=== PATIENT | female | born 1945 | race Caucasian/White ===

== ENCOUNTER → 2022-02-16 13:50 | Outpatient (BNVA) | payer MEDICARE, MEDICAID, SELFPAY | PROVIDERS: PCP Internal Medicine; Visit Provider Psychiatry & Neurology Neurology | DX: F09 Unspecified mental disorder due to known physiological condition (principal); R06.83 Snoring; R68.89 Other general symptoms and signs; G47.10 Hypersomnia, unspecified | CPT/HCPCS: 99202 ==

== ENCOUNTER → 2023-01-31 11:31 | Outpatient (BNVA) | payer MEDICARE, SELFPAY | PROVIDERS: PCP Internal Medicine; Visit Provider Psychiatry & Neurology Neurology | DX: F09 Unspecified mental disorder due to known physiological condition (principal); R06.83 Snoring; R68.89 Other general symptoms and signs; G47.10 Hypersomnia, unspecified | CPT/HCPCS: 99212 ==

== ENCOUNTER 2023-04-26 11:13 | Outpatient (AMB) | payer MEDICARE, SELFPAY ==
--- NOTE | 2023-04-26 11:16 | A.OFFVIS_ITS ---
Intake Vital Signs 04/26/23 11:25 Weight 151 lb BP 118/72 Blood Pressure Location Lt brachial Position Sitting Pulse 71 Pulse Source Pulse Oximeter Pulse Oximetry (%) 95 Oxygen Delivery Method Room Air Intake Visit Reasons: F/u for Dementia/hallucinations - Confirmed Intake Note: F/u for dementia and hallucination, daughter states that she needs to get a script for Xanas. Dialysis Chief Equipment Technician Required: Yes Dialysis Chief Equipment Technician Name: Cheryl Allergies duloxetine Allergy (Mild, Verified 04/26/23 11:19) Hallucinations HPI HPI Comments History of Present Illness Details 77 y/o female patient comes with her alfredo yomaira for follow up of sleep and cognitive disorder. Pt's daughter reports that patient was admitted to [facility] from Mar 08- due to dizziness, UTI and increased hallucination. She was treated with IV fluid and antibiotic, and discharged with VNA services. [facility] comes everyday to help her ADLs. In lab sleep study was ordered but she could not do it yet. Pt's cognition is same since the last visit. Hallucination is managed well with seroquel 25mg and it helps her sleep better, too She was on Xanax BID and did not get it refill, but will see psychiatrist 05/16/23. She is ok with seroquel now. [facility] Surgical History Hx of tonsillectomy Family History Sister Cancer Brother Cancer Brother Cancer Brother Cancer Son Diabetes Mother Stroke Brother Alcoholic Brother Stomach ache Social History (Updated 04/26/23 @ 11:23 by Dea Lemus CMA) Household Members: None Alcohol intake: current Patient Tobacco Use Status: Never used Tobacco Review of Systems Const All systems reviewed & are unremarkable except as noted in HPI and below Physical Exam Vital Signs: Last Vital Signs Pulse 71 04/26/23 11:25 BP 118/72 04/26/23 11:25 Pulse Ox 95 04/26/23 11:25 Oxygen Delivery Method Room Air 04/26/23 11:25 Const Orientation/consciousness: oriented to person and oriented to place Eyes Pupils: Equal, round and reactive pupils present Neuro Other: MMSE Date-11/22 Place- 12/22 Registration- 10/20 Spelling 5 letter backwards- 5 Recall- 3/3 3 step commands- 10/20 could not do intersecting pentagons Clock- could not do time but was able to write numbers properly Graduated high school in [place] General: oriented to person, oriented to place, tone normal, moves all extremities and no focal motor deficits Cranial nerves: Yes Facial sensation intact/muscles of mastication intact, Yes Equal, round and reactive pupils present, Yes Bilaterally intact EOM present, Yes Normal facial strength present and Yes Midline tongue present Gait exam (Neuro): Antalgic gait present Motor exam (neuro): 5/5 motor strength present throughout Coordination: wwlszk-np-kezk test normal Psych Appearance: grossly normal Speech and movement: Normal speech and movement present Affect: normal affect Assessment & Plan Assessment & Plan (1) Cognitive disorder: Code(s): F09 - Unspecified mental disorder due to known physiological condition (2) Snoring: Code(s): R06.83 - Snoring (3) Vivid dream: Code(s): R68.89 - Other general symptoms and signs (4) Hypersomnia: Code(s): G47.10 - Hypersomnia, unspecified Plan Sleep disorder and mood can be contributing to her cognitive issues. Sleep study is pending, advised patient's daughter to call to schedule the sleep study. Continue quetiapine 25mg qhs. Encouraged patient to increase daily physical and cognitive activity. Coding Level of Care Code Est Pt Level 3 (00710) Diagnoses Cognitive disorder F09 Snoring R06.83 Vivid dream R68.89 Hypersomnia G47.10
[2023-04-26 11:25] VITALS: BP 118/72; PULSE 71; O2SAT 95
== END 2023-04-26 11:48 | disposition home or self-care (01) ==
PROVIDERS: PCP Internal Medicine; Visit Provider Nurse Practitioner Family
DX: R41.89 Other symptoms and signs involving cognitive functions and awareness (principal); R06.83 Snoring; R68.89 Other general symptoms and signs; G47.10 Hypersomnia, unspecified
CPT/HCPCS: 99213

== ENCOUNTER → 2023-04-26 11:13 | Outpatient (BNVA) | payer MEDICARE, SELFPAY | PROVIDERS: PCP Internal Medicine; Visit Provider Nurse Practitioner Family | DX: G47.10 Hypersomnia, unspecified (principal); R06.83 Snoring; F09 Unspecified mental disorder due to known physiological condition; R68.89 Other general symptoms and signs | CPT/HCPCS: 99212 ==

== ENCOUNTER 2025-03-17 20:36 | Emergency (ER) | payer OTHER, SELFPAY ==
--- NOTE | ~2025-03-17 | CT_ITS ---
CLINICAL HISTORY: trauma CT head without contrast Comparison: None provided Findings: No intra-axial mass, midline shift, hydrocephalus, or acute hemorrhage. Moderate atrophy-like change and white matter disease. Mastoid air cells are well aerated. Mild paranasal sinus disease. The orbits are unremarkable. No skull fracture. IMPRESSION: 1. No acute intracranial findings. 2. Chronic/nonacute findings as above. This document has been electronically signed by: Aranza Bazzi MD on 03/18/2025 00:47:10
--- NOTE | ~2025-03-17 | CT_ITS ---
CLINICAL HISTORY: trauma CT lumbar spine without contrast Comparison: None provided Findings: Lumbar spine lordosis is maintained. No acute compression fractures. No spondylolisthesis. Mclz-jl-ibyvzdao multilevel endplate, discogenic and facet arthropathy throughout the lumbar spine. Moderate narrowing of spinal canal at L3-L4 and L4-L5 levels. No acute findings within visualized soft tissues. Indeterminate left adrenal nodule measuring 1.8 cm in size. Bilateral renal cysts. Impression: 1. No acute lumbar spine fracture or subluxation. 2. Multilevel lumbar spine arthropathy most significant at L3-L4 and L4-L5 levels that can be further evaluated with MRI if clinically indicated. 3. Indeterminate 1.8 cm left adrenal nodule. Multiphase adrenal protocol CT or MRI may be considered for further evaluation. 4. Additional chronic/nonacute findings as above. This document has been electronically signed by: Aranza Bazzi MD on 03/18/2025 00:20:27
--- NOTE | ~2025-03-17 | CT_ITS ---
CLINICAL HISTORY: trauma CT cervical spine without contrast Comparison: None provided Findings: Motion and streak artifact limit evaluation. Straightening of the cervical lordosis. Osteopenia. Multilevel spondylosis with osteophytosis, uncovertebral hypertrophy, facet arthropathy and degenerative disc disease. Mildly diffuse spinal canal narrowing for example at C5-C6 with disc bulge and severe bilateral foraminal stenoses drain No acute fractures or dislocations. Soft tissues of the neck are normal. No consolidation or effusion at the lung apices. IMPRESSION: No acute findings. Additional findings as described. This document has been electronically signed by: Param Mills MD on 03/18/2025 01:26:04
[2025-03-17 20:42] VITALS: BP 132/68; BP 150/62; PULSE 110; PULSE 65; RESP 16; TEMP 36.8; O2SAT 96; O2SAT 99; BMI 27.5
--- OUTSIDE RECORDS SUMMARY | 2025-03-17 22:17 | XMS_ITS ---
Author Name [facility] Organization Unknown Care Team Organization Name Specialty Phone Email Start Date End Da te [facility] 06/27/202203/20
--- OUTSIDE RECORDS SUMMARY | 2025-03-17 22:17 | XMS_ITS | Clinical Summary ---
Author Organization [facility] [address] Address [address] [place] [address] Phone Care Team Providers Care Family Physician Name Role Phone Amanda Owens MD Primary Care Provider [phone] Allergies No known active allergies Medications rosuvastatin (CRESTOR) 40 mg tablet TAKE 1 TABLET BY MOUTH DAILY 90 tablet 1 4 Active sertraline (ZOLOFT) 100 mg tablet TAKE 1 TABLET BY MOUTH DAILY 90 tablet 1 4 Active amLODIPine (NORVASC) 5 mg tablet Take 1 tablet (5 mg total) by mouth 1 (one) time each day. 4 Active haloperidoL (HALDOL) 1 mg tablet Take 1 tablet (1 mg total) by mouth. 4 Active lisinopril (PRINIVIL,ZESTR IL) 40 mg tablet Take 1 tablet (40 mg total) by mouth 1 (one) time each day. 4 Active metFORMIN (GLUCOPHAGE) 500 mg tablet Take 2 tablets (1,000 mg total) by mouth 2 (two) times a day with meals. 4 Active metoprolol succinate (TOPROL-XL) 100 mg 24 hr tablet Take 1 tablet (100 mg total) by mouth 1 (one) time each day. 4 Active mirtazapine (REMERON) 7.5 mg tablet Take 1 tablet (7.5 mg total) by mouth at bedtime. 4 Active QUEtiapine (SEROquel) 25 mg tablet Take 1 tablet (25 mg total) by mouth at bedtime as needed. Active rosuvastatin (CRESTOR) 40 mg tablet Take 1 tablet (40 mg total) by mouth 1 (one) time each day. 4 Active sertraline (ZOLOFT) 100 mg tablet Take 1 tablet (100 mg total) by mouth 1 (one) time each day. Active lancets (StealzTouch Delica Plus Lancet) 33 gauge Apply 1 Each topically daily. 3 Active blood-glucose meter kit Use to test blood sugar once daily 3 Active OneTouch Ultra Test test strip Use to test blood sugar once daily 3 Active blood-glucose calibrat control combo pack Use for calibration as needed 6 Active metFORMIN (GLUCOPHAGE) 500 mg tablet TAKE 2 TABLETS BY MOUTH TWICE DAILY WITH MEALS 120 tablet 5 Active Active Problems Problem Noted Date Diagnosed Date Anxiety 07/15/2024 Arthritic-like pain 07/15/2024 Depression 07/15/2024 HTN (hypertension) 07/15/2024 Stage 3a chronic kidney disease ([facility] V24, [facility] V28) 03/02/2023 Insomnia 10/26/2022 Osteoarthritis of right knee 06/25/2020 Alzheimer disease ([facility] V24, [facility] V28) 09/2018 Overview (07/15/2024): Follows with neurology, Dr. Green Type 2 diabetes mellitus wit hout complication ([facility] V24, [facility] V28) 04/08/2018 Hyperlipidemia LDL goal <100 03/02/2016 GERD (gastroesophageal reflux disease) 2 Immunizations Name Administration Dates Next Due Influenza trivalent, 0.5mL ( Fluad) 65yo and older 07/17/2022,06/25/2020,07/31/2019,06/18,09/12/2017,05/23/2016 Influenza trivalent, with pr eservative (Fluzone; Afluria) 6mo and older 06/14/2015 Pneumococcal conjugate 13 va lent (Prevnar 13, PCV13) 2mo and older 03/02/2016 Pneumococcal polysaccharide 23 valent (Pneumovax 23) 2yo and older 11/16/2010 Td Tetanus diptheria (Tdvax) 7yo and older 07/07/2021,11/16/2010 Tdap Tetanus diptheria acell ular pertussis (Boostrix; Adacel) 7yo and older 07/17/2022 Surgical History Surgery Date Site/Laterality Comments TONSILLECTOMY 1959' PROCEDURE: HISTORICAL TONSILLECTOMY Medical History Medical History Date Comments HTN (hypertension) DX:HTN (hyper tension) High cholesterol DX:High cholest kim Depression DX:Depression Anxiety DX:Anxiety Arthritic-like pain DX:Arthritic -like pain Kidney stones DX:Kidney stones Diabetes type 2, uncontrolled 12/15/2011 DX :Diabetes type 2, uncontrolled Hyperlipidemia LDL goal <100 03/02/2016 DX: Hyperlipidemia LDL goal <100 Family History Relation Name Status Comments Brother 1 prostate ca Brother 2 liver ca Brother 3 Alive dm, htn , high cholesterol Brother 4 Alive htn, Brother 5 Alive alcholic Brother 6 Alive stomach problem s Daughter 1 Alive scoliosis,carpa l tunnel depression and anxiety Daughter 2 Alive depression low blood pressure Father liver problems Maternal Grandfather Maternal Grandmother Mother stroke Paternal Grandfather Paternal Grandmother (Age 102) o ld age Sister 1 Alive htn,depression Sister 2 Alive unknown Sister 3 Alive depressin, anxi ety, arthritis Son 1 Alive bipolor Son 2 Alive dm severe Social History Tobacco Use Types Packs/Day Years Used Date Smoking Tobacco: Never Smokeless Tobacco: Never Alcohol Use Standard Drinks/Week Comments No 0 (1 standard drink = 0.6 oz pur e alcohol) Comments Unknown Sex and Gender Information Value Date Recorded Sex Assigned at Not on file Legal Sex Female 8:26 AM EST Gender Identity Not on file Sexual Orientation Not on file Obstetrics History Last Filed Vital Signs Vital Sign Reading Time Taken Comments Blood Pressure 126/82 05/29/2024 1:49 PM EDT Pulse 78 05/29/2024 1:49 PM EDT Temperature - - Respiratory Rate - - Oxygen Saturation - - Inhaled Oxygen Concentration - - Weight 61.7 kg (136 lb) 05/29/2024 1:49 PM EDT Height 157.5 cm (5' 2 ) 05/29/2024 1:49 PM EDT Body Mass Index 24.87 05/29/2024 1:49 PM EDT Plan of Treatment Health Maintenance Due Date Last Done Comments Diabetes: Annual Foot Exam 1955 Diabetes: Annual Retina Eye Exam 1955 Zoster Vaccines (1 of 2) 1963 RSV Immunization Adult Patients (1 - 1-dose 75+ series) 2019 COVID-19 Vaccine (3 - Moderna risk series) 12/31/2020 12/03/2020, 11/05/2020 Falls Risk Assessment 07/23/2022 Osteoporosis Screening (Bone Density Screening) 07/23/2022 Social Influencers of Health Screening 07/23/2022 Medicare Annual Wellness Visit 07/17/2023 07/17/2022 Depression Screening 08/20/2024 Diabetes: Blood Sugar Control Test (HGBA1C) 08/20/2024 02/18/2024, 02/18/2024 Diabetes: Annual Urine Albumin-Creatinine Ratio (uACR) 02/17/2025 02/18/2024 Diabetes: Annual GFR (Glomerular Filtration Rate) 02/17/2025 02/18/2024, 02/18/2024 Hypertension/CHF/CAD Annual BMP Blood Test 02/17/2025 02/18/2024, 02/18/2024 Influenza Vaccine (#1) 2025 , 05/27/2021, 06/25/2020, Additional history exists Cholesterol Screening (Lipid Panel) 02/17/2029 02/18/2024, 02/18/2024 DTaP,Tdap,and Td Vaccines (4 - Td or Tdap) 07/17/2032 07/17/2022, 07/07/2021, 11/16/2010 Pneumococcal Vaccine: 50+ Years Completed 03/02/2016, 11/16/2010 HIB Vaccines Aged Out No longer eligi ble based on patient's age to complete this topic HPV Vaccines Aged Out No longer eligi ble based on patient's age to complete this topic Hepatitis A Vaccines Aged Out No long er eligible based on patient's age to complete this topic Hepatitis B Vaccines Aged Out No long er eligible based on patient's age to complete this topic IPV Vaccines Aged Out No longer eligi ble based on patient's age to complete this topic MMR Vaccines Aged Out No longer eligi ble based on patient's age to complete this topic Meningococcal ACWY Vaccine Aged Out N o longer eligible based on patient's age to complete this topic Meningococcal B Vaccine Aged Out No l onger eligible based on patient's age to complete this topic RSV Immunization Patients Under 20 months Aged Out No longer eligible based on patient's age to complete this topic Varicella Vaccines Aged Out No longer eligible based on patient's age to complete this topic Procedures Procedure Name Priority Date/Time Associated Diagnosis Comments URINE ALBUMIN CREATININE RATIO Routine 02/18/2024 ANNUAL BMP BLOOD TEST Routine 02/18/2024 HEMOGLOBIN A1C Routine 02/18/2024 LIPID PANEL Routine 02/18/2024 from Last 3 Months or Most Recently Relevant to Health Maintenance Results * Urine Albumin Creatinine Ratio (02/18/2024) Pathologist [facility] Urine Albumin Creatinine Ratio abstracted Result [facility] HEALTH MAINTENANCE Final Result * Annual BMP Blood Test (02/18/2024) Pathologist [facility] Annual BMP Blood Test abstracted Result [facility] HEALTH MAINTENANCE Final Result * (ABNORMAL) Hemoglobin A1c (02/18/2024) Pathologist [facility] Hemoglobin A1C 6.9(A) <=6.5 % Blood Venous blood specimen / Unknown Result [facility] Provider LAB BLOOD ORDERABLES Betzy l Result * (ABNORMAL) Lipid panel (02/18/2024) Pathologist [facility] LDL/HDL Ratio 3 0 - 4 Triglycerides 93 0 - 150 mg/dL Cholesterol 211(A) 0 - 200 mg/dL HDL 68 >=40 mg/dL LDL Cholesterol 125(A) 0 - 100 mg/dL Blood Venous blood specimen / Unknown Result [facility] Provider LAB BLOOD ORDERABLES Betzy l Result from Last 3 Months or Most Recently Relevant to Health Maintenance Insurance [employer] MEDICARE Member Subscriber Plan / Payer (Ef fective 2022-Present) Name:Cheryl Hatfield Relation to Subscriber:Self Name:Cheryl Hatfield Payer ID:[id number] Group ID:[id number] Type:Not on file Address: [facility] [address] [address] Care Teams Family Physician Relationship Specialty Start Date End Date Amanda Owens MD PCP - General 01/28/24
--- OUTSIDE RECORDS SUMMARY | 2025-03-17 22:17 | XMS_ITS | Data Portability ---
Author Organization [facility], Main Office Address [address] [place] [address] Care Team Providers Care Utility System Repairer Name Role Phone KAMERON MCCARTY - 2ND FLOOR OTHER Assessment No assessment recorded. Plan of Treatment Reminders Order Date Submit Date Provider Last Modified By Organization Details Last Modified Time Details Appointments Admitting H&P 2024 11:19A M Harry Del Castillo MD Not available Not available Not available Lab None recorded. Referral None recorded. Procedures None recorded. Surgeries None recorded. Imaging None recorded. Medication Orders None recorded. Patient TargetsNo targets recorded. Patient InstructionsNo instructions recorded. Reason for Referral None Reported. Problems Name Problem SNOMED Code Status Onset Date Resolution Date Notes Provider Name and Address Organization Details Recorded Time Hyponatremia 35211116 Active [address] NP [address], [address], [place], [address], [facility] 5 09:23:43 Essential hypertension 60082958 Active [address] NP [address], [address], [place], [address], [facility] 5 09:24:23 Vascular dementia 268880449 Active [address] NP [address] , [address], [place], [address], [facility] 5 09:28:14 Diabetic on oral treatment 298367256 Active [address] NP [address] , [address], [place], [address], [facility] [employer] [facility] 5 09:28:[address] Active [address] NP [address], [address], [place], [address], [facility] 09:28:53 Problem Notes None recorded. Medical Equipment None Reported. Allergies No known drug allergies Medications Not known to be on any medication Vitals Date Recorded Body weight Heart rate Respiratory rate Body temperature Oxygen saturation Oxygen saturation in Arterial blood by Pulse oximetry Systolic And Diastolic Provider Name and Address Organization Details Last Updated DateTime 36755.3 g 60 /min 18 /min 97.6 [degF] 98 % 98 % 122/75 mm[Hg] Ave Weston NP [address], [address], [place], [address], [facility] 08:48:43 Date Recorded Body weight Heart rate Respiratory rate Systolic And Diastolic Provider Name and Address Organization Details Last Updated DateTime 03/17/2025 77387.3 g 73 /min 18 /min 114/58 mm[Hg] Harry Del Castillo MD [address], [address], [place], [address] , [facility] 03/17/2025 11:20:42 Social History Question Answer Notes LastModified by Organizat ion Details LastModified Time Tobacco Smoking Status Never Smoker Ave Weston NP [address], [facility] [address], [place], [address], [facility] 03/11/2025 09:18:18 Do You Have An Advance Directive? No Information not available 03/11/2025 What Is Your Code Status? Full Code Information not available 03/11/2025 Where Do You Live? Apartment Lives Alone In Custodial Information not available 03/11/2025 What Was The Date Of Your Most Recent Tobacco Screening? 03/11/2025 Information not available 03/11/2025 Do You Have An Out Of Hospital DNR? No Information not available 03/11/2025 What Is Your Relationship Status? Information not available 03/11/2025 Has Tobacco Cessation Counseling Been Provided? No Information not available 03/11/2025 Sex: Female Functional Status Question Answer Note LastModified by Organizat ion Details LastModified Time Do you use any illicit or recreational drugs? No Information not available 03/11/2025 Do you or have you ever used any other forms of tobacco or nicotine? No Information not available 03/11/2025 What is your level of alcohol consumption? None Information not available 03/11/2025 Mental Status None recorded. Family History Nothing Reported Notes:sister: colon ca broth er: stroke Medical History No medical history recorded. Gynecological HistoryNo gynecological history recorded. Obstetrics History GPAL:G 0 P 0 0 0 0 Past Encounters Encounter ID Performer Location Encounter Start Date Encounter Closed Date Diagnosis/Indication Diagnosis SNOMED-CT Code Diagnosis ICD10 Code Diagnosis Note [id number] Ave Weston NP [address] [address] 03/11/2025 08:12:19 03/12/2025 16:20:00 Vascular dementia 005135374 F01.B11 pt with vascular dementia and agitation now seeking LTCstarted on trazodone 25 mg po qhs and 25 mg po q 12 hrs prn x 14 days in [facility] today with hcpsupport william care and redirectio nfull work up in ER done and no obvious abnormalit iessupport [facility] r Hyponatremia 11553737 E8 7.1 notable hx of na in past, likely chronic hyponatrem iasodium corrected [facility] na weekly with bmp and adjust according Diabetic o n oral treatment 067787129 E11.9 Z79.84 on metformin 1000 mg po bid, unclear if she was on this at home daily or biddanathalie r requesting daily dosing for gi upsetmetfo rmin 1000mg [facility] and reassess on 8/6bmp weekly Essential hypertension 06543330 I10 hx ofbp controlled heremetopr olol 100mg xl po qdamlodipi ne 5 mg po qdmonitor Arthritis 9850150 M19.90 pt with inflammed outer ankle mallelous, lower back painpt states this is chronic arthritisn o obvious foot, ankle generalize d, or lower ext edemapt has poor footwear, rec sneakersty lenol 650 mg po bid nte 3 grams/24 hrsmonitor for need to adjust Recurrent falls 64610202 2 R29.6 pt with recurrent fallssuppo rtive carept ot eval and treatmonit or Hyperlipidemia 23248225 E78.5 rosuvastat in 40 mg po qhsmonitor labs prn [id number] Harry Del Castillo MD [address] [address] 03/17/2025 11:19:45 03/17/2025 11:48:03 Vascular dementia 688116146 F01.B11 see HPIprogres sive dementia with patient started on trazodone during hospitaliz ationinvok e HCPpsych to [facility] r for behaviorsp atient with increased agitation at facility has required prn dosing with limited results worse at nightincre ased totrazodon e 50 mg qhs scheduled and 50 mg bid prn breakthrou gh agitationa wait psych recommenda tions Hyponatremia 16032408 E8 7.1 see HPIhx of recurrent episodes of hyponatrem iatreated with IVF during hospitaliz ationmonit or lytes and fluid status Diabetic o n oral treatment 652536774 E11.9 Z79.84 metformin was held and patient covered with SS insulin in hospitalme tformin 1000 mg bid restarted on dischargeH Ba1c=6.7 from hospital d/cmonitor blood glucose and need to titrate Essential hypertension 25135762 I10 maintained onmetoprol ol 100 mg qdnorvasc 5 mg qdmonitor need to titrate Recurrent falls 29788683 2 R29.6 PT OT eval and treatmonit or fall risk and need for increased support in community vs need to transition to LTC Mixed hyperlipidemia 267 244734 E78.2 rosuvastat in 40 mg qhscontinu ed Health Concerns Section Related Observation LastModified by Organization Detai ls LastModified Time None Recorded Concern Status LastModified by Organization Details LastModified Time None Recorded Advance Directives Directive N: Payers Insurance Date Sequence Insurance Name Policy Number Policy Rivera Covered Member ID Rivera Member ID Guarantor Name 03/17/2025 1 [facility] - DOS ON OR AFTER 2022 - MEDICARE ADVANTAGE [place] (MEDICARE REPLACEMENT/ADV ANTAGE - PPO) Cheryl Hatfield [id number] Cheryl Hatfield OBGyn Episode No OBEpisode recorded.
[2025-03-17 23:24] LABS: Hematocrit 37.4 % (37.0-47.0); Hemoglobin 12.7 g/dl (12.0-16.0); Imm Gran Abs Auto 0.03 X10*3/uL (0.00-0.03); Imm Gran Pct Auto 0.3 % (0.0-0.4); Lymphocytes Absolute Auto 3.2 X10*3/uL (1.2-4.9); MANUAL DIFF FLAG NO; Mean Corpuscular HGB Conc 34.0 g/dl (31.0-35.0); Mean Corpuscular Hemoglobin 29.3 pg (27.0-33.0); Mean Corpuscular Volume 86.4 fL (80.0-98.0); NRBC Abs Auto 0.000 X10*3/uL (0.0-0.012); NRBC Pct Auto 0.0 /100WBC (0.0-0.2); Platelet Count 175 X10*3/uL (160-400); Red Blood Count 4.33 X10*6/uL (4.20-5.50); White Blood Count 10.4 X10*3/uL (4.8-10.8)
--- NOTE | 2025-03-17 23:30 | PC.NURSE ---
Report taken from Mariia. Pt off to CT at this time.
[2025-03-17 23:40] LABS: Alanine Aminotransferase 18 U/L (0-31); Albumin Level 4.2 g/dL (3.5-5.0); Alkaline Phosphatase 52 U/L (39-117); Anion Gap 15 (12-20); Aspartate Amino Transferase 32 U/L (5-31); Blood Urea Nitrogen 20 mg/dL (9-16); Calcium 9.3 mg/dL (8.4-10.2); Carbon Dioxide 24 mmol/L (22-29); Chloride 102 mmol/L (96-108); Creatinine Clr Calc Pharmacy 49.7; Estimated Glomerular Filt Rate > 60; Magnesium 1.8 mg/dL (1.6-2.6); Potassium 4.0 mmol/L (3.3-5.1); Sodium 137 mmol/L (135-145); Total Protein 7.7 g/dL (6.5-8.0)
[2025-03-17 23:48] VITALS: BP 158/67; PULSE 60; RESP 16; TEMP 36.6; O2SAT 97
--- NOTE | 2025-03-18 01:30 | ED.GENADULT ---
HPI - General Adult General Chief complaint: Fall Stated complaint: Fall Time Seen by Provider: 03/17/25 22:45 Source: EMS Limitations: language barrier and other (dementia) History of Present Illness ED Provider: Kelly Cuevas PA-C HPI narrative: 79-year-old female with a history of dementia, hypertension, diabetes, hyperlipidemia who presents from [facility] after an unwitnessed fall. The patient's only complaint is for low back pain. Related Data Home Medications ?Medication ?Instructions ?Recorded ?Confirmed alprazolam 1 mg tablet 1 mg PO BID PRN 02/10/22 01/31/23 amlodipine 5 mg tablet 5 mg PO DAILY 02/10/22 01/31/23 glipizide 10 mg tablet 10 mg PO BID 02/10/22 01/31/23 hydrochlorothiazide 25 mg tablet 25 mg PO DAILY 02/10/22 01/31/23 lisinopril 40 mg tablet 40 mg PO DAILY 02/10/22 01/31/23 metoprolol succinate 100 mg 100 mg PO DAILY 02/10/22 01/31/23 tablet,extended release 24 hr quetiapine 25 mg tablet mg PO 02/10/22 01/31/23 rosuvastatin 40 mg tablet 40 mg PO DAILY 02/10/22 01/31/23 sertraline 25 mg tablet 25 mg PO DAILY 02/10/22 01/31/23 metformin 500 mg tablet 500 mg PO DAILY 04/26/23 Allergies Allergy/AdvReac Type Severity Reaction Status Date / Time duloxetine Allergy Mild Hallucinati Verified 03/17/25 20:45 ons Review of Systems Review of Systems: Unable to obtain secondary to dementia Yes all other systems are reviewed and are negative [facility] Past Medical History Attestation statement: The following information was validated with the patient. Surgical History Hx of tonsillectomy Family History Family History Sister Cancer Brother Cancer Brother Cancer Brother Cancer Son Diabetes Mother Stroke Brother Alcoholic Brother Stomach ache Social History Social History (Updated 04/26/23 @ 11:23 by Dea Lemus CMA) Household Members: None Alcohol intake: current Patient Tobacco Use Status: Never used Tobacco Advance Directives: No Advance Directives Information Provided: No Physical Exam ED Vital Signs: Vital Signs - 24 hr 03/17/25 20:42 03/17/25 23:48 03/18/25 02:06 Temperature 98.3 F 97.8 F 97.4 F Pulse Rate 65 60 68 Respiratory Rate 16 16 17 Blood Pressure 150/62 H 158/67 H 180/66 H Pulse Oximetry 96 97 96 Oxygen Delivery Method Room Air Room Air Room Air BMI result Body Mass Index 27.5 Const Other: Alert no sign of head trauma on exam Orientation/consciousness: oriented to person Resp Effort & Inspection: normal respiratory effort Cardio Other: Normal peripheral perfusion Skin Other: Warm dry no rash Neuro General: oriented to person, gait normal, no focal motor deficits and CN's II-XI intact bilaterally Extrem Other: Patient up and out of bed with her C-collar on, moving all extremities independently Psych Other: Somewhat cooperative she is redirectable Medical Decision Making Medical Decision Making MDM Narrative: 79-year-old female with a history of dementia, hypertension, diabetes, hyperlipidemia who presents from [facility] after an unwitnessed fall. The patient's only concern is for low back pain at this time. Problem: Age, dementia, diabetes History: Which is very limited from EMS I have considered the following differential diagnoses: Lumbar strain, compression fracture, intracranial hemorrhage, cervical spine injury Plan: Patient is not a reliable historian, unclear mechanism how she fell, we will be scanning her head and neck and lumbar spine. We will screen basic labs in the event that she has sustained an acute injury and we will require additional interventions. I have independently reviewed the following tests: Labs: No leukocytosis, not anemic, no electrolyte abnormality noted CT brain: Findings: No intra-axial mass, midline shift, hydrocephalus, or acute hemorrhage. Moderate atrophy-like change and white matter disease. Mastoid air cells are well aerated. Mild paranasal sinus disease. The orbits are unremarkable. No skull fracture. IMPRESSION: 1. No acute intracranial findings. 2. Chronic/nonacute findings as above. CT cervical spine:Findings: Motion and streak artifact limit evaluation. Straightening of the cervical lordosis. Osteopenia. Multilevel spondylosis with osteophytosis, uncovertebral hypertrophy, facet arthropathy and degenerative disc disease. Mildly diffuse spinal canal narrowing for example at C5-C6 with disc bulge and severe bilateral foraminal stenoses drain No acute fractures or dislocations. Soft tissues of the neck are normal. No consolidation or effusion at the lung apices. IMPRESSION: No acute findings. Additional findings as described. CT lumbar spine:Findings: Lumbar spine lordosis is maintained. No acute compression fractures. No spondylolisthesis. [id number] multilevel endplate, discogenic and facet arthropathy throughout the lumbar spine. Moderate narrowing of spinal canal at L3-L4 and L4-L5 levels. No acute findings within visualized soft tissues. Indeterminate left adrenal nodule measuring 1.8 cm in size. Bilateral renal cysts. Impression: 1. No acute lumbar spine fracture or subluxation. 2. Multilevel lumbar spine arthropathy most significant at L3-L4 and L4-L5 levels that can be further evaluated with MRI if clinically indicated. 3. Indeterminate 1.8 cm left adrenal nodule. Multiphase adrenal protocol CT or MRI may be considered for further evaluation. 4. Additional chronic/nonacute findings as above. Lab Data 03/17/25 23:19 03/17/25 23:19 Labs: Lab Results 03/17/25 Range/Units 23:19 WBC 10.4 (4.8-10.8) X10*3/uL RBC 4.33 (4.20-5.50) X10*6/uL Hgb 12.7 (12.0-16.0) g/dl Hct 37.4 (37.0-47.0) % MCV 86.4 (80.0-98.0) fL MCH 29.3 (27.0-33.0) pg MCHC 34.0 (31.0-35.0) g/dl RDW 11.8 (11.0-16.0) % Plt Count 175 (160-400) X10*3/uL MPV 9.8 (9.4-12.3) fL Immature Gran % (Auto) 0.3 (0.0-0.4) % Neut % (Auto) 59.7 (45-73) % Lymph % (Auto) 30.7 (20-40) % Kane % (Auto) 7.4 (2-11) % Eos % (Auto) 1.6 (0-4) % Baso % (Auto) 0.3 (0-2) % Lymph # (Auto) 3.2 (1.2-4.9) X10*3/uL Kane # (Auto) 0.8 (0.1-1.2) X10*3/uL Eos # (Auto) 0.2 (0.0-0.4) X10*3/uL Baso # (Auto) 0.0 (0.0-0.2) X10*3/uL Abs Immat Gran (auto) 0.03 (0.00-0.03) X10*3/uL Absolute Neuts (auto) 6.2 (2.0-8.3) x10*3/uL Absolute Nucleated RBC 0.000 (0.0-0.012) X10*3/uL Nucleated RBC % (auto) 0.0 (0.0-0.2) /100WBC Sodium 137 (135-145) mmol/L Potassium 4.0 (3.3-5.1) mmol/L Chloride 102 (96-108) mmol/L Carbon Dioxide 24 (22-29) mmol/L Anion Gap 15 (12-20) BUN 20 H (9-16) mg/dL Creatinine 0.88 (0.5-1.4) mg/dL Estim Creat Clear Calc 49.7 Estimated GFR > 60 Random Glucose 97 (60-115) mg/dL Calcium 9.3 (8.4-10.2) mg/dL Magnesium 1.8 (1.6-2.6) mg/dL Total Bilirubin 0.4 (0.0-1.0) mg/dL AST 32 H (5-31) U/L ALT 18 (0-31) U/L Alkaline Phosphatase 52 (39-117) U/L Total Protein 7.7 (6.5-8.0) g/dL Albumin 4.2 (3.5-5.0) g/dL Discharge Plan Discharge Clinical Impression[facility] Patient Disposition: Xfer SNF Instructions: Fall Prevention for Older Adults (ED) Additional Instructions: Imaging of the patient's brain, cervical spine and lumbar spine were obtained, no injury sustained. Screening labs were also obtained, no abnormalities noted. Prescriptions: No Action alprazolam 1 mg tablet 1 mg PO BID PRN hydrochlorothiazide 25 mg tablet 25 mg PO DAILY rosuvastatin 40 mg tablet 40 mg PO DAILY sertraline 25 mg tablet 25 mg PO DAILY amlodipine 5 mg tablet 5 mg PO DAILY glipizide 10 mg tablet 10 mg PO BID lisinopril 40 mg tablet 40 mg PO DAILY metoprolol succinate 100 mg tablet extended release 24 hr 100 mg PO DAILY quetiapine 25 mg tablet PO metformin 500 mg tablet 500 mg PO DAILY Print Language: [place]
--- NOTE | 2025-03-18 01:40 | PC.NURSE ---
Addendum entered by Eveline Ellis RN 03/18/25 01:52: Pt found standing in room, assisted into a hospital bed, bed alarm activated until patient is discharged back to facililty. Original Note: Collar removed. Plan for discharge.
[2025-03-18 02:06] VITALS: BP 180/66; PULSE 68; RESP 17; TEMP 36.3; O2SAT 96
[2025-03-18 02:20] VITALS: BP 0/0; PULSE 0; RESP 0; TEMP -17.7; TEMP 0; O2SAT 0
--- NOTE | 2025-03-18 02:20 | PC.NURSE ---
Nurse to nurse given to Katie. EMS at bedside for transport.
== END 2025-03-18 02:20 | disposition skilled nursing facility (03) ==
PROVIDERS: Physician Assistant Medical; Emergency Provider Emergency Medicine
DX: Z04.3 Encounter for examination and observation following other accident (principal); M54.50 Low back pain, unspecified; Z91.81 History of falling; E11.9 Type 2 diabetes mellitus without complications; I10 Essential (primary) hypertension; E78.5 Hyperlipidemia, unspecified; Z79.899 Other long term (current) drug therapy; Z79.02 Long term (current) use of antithrombotics/antiplatelets
CPT/HCPCS: 36415; 70450; 72125; 72131; 80053; 83735; 85025; 99284

== ENCOUNTER → 2025-03-17 22:45 | Outpatient (BNV) | payer MEDICARE, SELFPAY | PROVIDERS: Emergency Provider Emergency Medicine; Visit Provider Radiology Diagnostic Radiology | DX: Z04.3 Encounter for examination and observation following other accident (principal); M54.50 Low back pain, unspecified | CPT/HCPCS: 70450; 72125; 72131 ==